=== PATIENT | female | born 1975 | race American Indian/Alaskan Native ===

== ENCOUNTER 2018-08-08 13:14 | Emergency (ER) | payer BC, OTHER ==
[~2018-08-08] VITALS: Ht 165.1 cm; Wt 99.8 kg
--- NOTE | 2018-08-08 13:40 | NUR ---
PATIENT TO ROOM AT 1340
[2018-08-08 13:55] LABS: BASOPHILS % 0.4 % (0.0-1.0); EOSINOPHILS # (AUTO) 0.2 (0.0-0.4); EOSINOPHILS % 2.6 % (0.0-6.0); HEMATOCRIT 34.8 % (34.2-44.1); LYMPHOCYTES # (AUTO) 1.2 (1.0-3.2); LYMPHOCYTES % 16.3 % (18.0-39.1); MEAN CORPUSCULAR HEMOGLOBIN 24.6 pg (28-32); MEAN CORPUSCULAR HGB CONC 31.6 g/dL (31-35); MEAN CORPUSCULAR VOLUME 77.7 fL (81-99); MONOCYTES # (AUTO) 0.6 (0.2-0.8); MONOCYTES % 7.3 % (4.4-11.3); NEUTROPHILS # (AUTO) 5.5 (2.1-6.9); PLATELET COUNT 408 x10e3/uL (140-360); RED BLOOD COUNT 4.48 x10e6/uL (3.6-5.1); RED CELL DISTRIBUTION WIDTH 18.8 % (11.7-14.4)
[2018-08-08 13:56] LABS: COLOR,URINE YELLOW (YELLOW)
[2018-08-08 13:57] LABS: BILIRUBIN,URINE NEGATIVE (NEGATIVE); CLARITY,URINE SL CLOUDY (CLEAR); KETONES,URINE NEGATIVE (NEGATIVE); LEUKOCYTE ESTERASE ,URINE NEGATIVE (NEGATIVE); NITRITE,URINE NEGATIVE (NEGATIVE); PROTEIN,URINE DIPSTICK NEGATIVE (NEGATIVE); URINE UROBILINOGEN 0.2 mg/dL (0.2 - 1)
--- NOTE | 2018-08-08 14:06 | NUR ---
BEDSIDE REPORT TO AIDAN BISWAS R.N.
[2018-08-08 14:07] LABS: BACTERIA,URINE MODERATE /HPF; EPITHELIAL CELLS,URINE MANY /LPF; MUCUS,URINE MODERATE (RARE); RBC,URINE 0-5 /HPF (0-5); TRANSITIONAL EPI CELLS,URINE MODERATE
[2018-08-08 14:10] LABS: ALANINE AMINOTRANSFERASE 40 IU/L (0-55); ALBUMIN 3.5 g/dL (3.5-5.0); ALBUMIN/GLOBULIN RATIO 0.9 (0.8-2.0); ALKALINE PHOSPHATASE 83 IU/L (40-150); ANION GAP 11.3 mmol/L (8-16); BLOOD UREA NITROGEN 15 mg/dL (7-26); BUN/CREATININE RATIO 21 (6-25); CARBON DIOXIDE 23 mmol/L (22-29); CHLORIDE 106 mmol/L (98-107); CREATININE, SERUM 0.72 mg/dL (0.57-1.11); EST GLOMERULAR FILTRATION RATE > 60 ML/MIN (60-); GLUCOSE 135 mg/dL (74-118); POTASSIUM 3.3 mmol/L (3.5-5.1); SODIUM 137 mmol/L (136-145)
[2018-08-08] MEDS ORDERED: SODIUM CHLORIDE 0.9% 50ML 50 ML ONE (14:25)
[2018-08-08] MEDS ORDERED: IOPAMIDOL 370 MG/ML 200 ML INFUS..BTL INJ ONE (14:26)
--- NOTE | 2018-08-08 15:07 | Diagnostic Imaging Report ---
Exam: Head CT without contrast History: Dizziness, lightheadedness Comparison studies: None Technique: Axial images were obtained from the skull base to the vertex. Coronal and sagittal images reconstructed from the axial data. Dose modulation, iterative reconstruction, and/or weight based adjustment of the mA/kV was utilized to reduce the radiation dose to as low as reasonably achievable. Radiation dose: Total DLP: 921 mGy*cm. Estimated effective dose: DLP x 0.015 Intravenous contrast: None Findings: Scalp: No abnormalities. Bones: No fractures, blastic or lytic lesions. Brain sulci: Right frontal convexity are mildly prominent. Ventricles: Normal in size and configuration. No hydrocephalus. Extra-axial spaces: Small mildly prominent extra-axial space similar to that of CSF density along the anterior left middle cranial fossa may reflect small arachnoid cyst and does not result in significant mass. No other mass or fluid collection. Parenchyma: No abnormal densities. No masses, acute hemorrhage, acute or chronic vascular insults. Sellar/suprasellar region: No abnormalities. Craniocervical junction: Patent foramen magnum. No Chiari one malformation. Incidental findings: Left sphenoid sinus partially opacified by nonspecific frothy secretions. IMPRESSION: 1. No acute intracranial abnormalities. 2. Incidental nonspecific inflammatory changes in the left sphenoid sinus. Signed by: Dr. Easton Goddard M.D. on 08/08/2018 3:03 PM
--- NOTE | 2018-08-08 15:09 | Diagnostic Imaging Report ---
EXAMINATION: CT of the chest with contrast, PE protocol. TECHNIQUE: Spiral CT images of the chest were performed from the lung apices through the level of the adrenal glands after the IV administration of 100 cc of Isovue-[id number]. Thin section reconstructions were obtained with special concentration on the pulmonary arteries. COMPARISON: None available CLINICAL HISTORY:Dizziness, shortness of breath DISCUSSION: Vasculature: The main pulmonary artery, right and left pulmonary arteries, and their visualized lobar and segmental branches are patent, without filling defect. The pulmonary outflow tract is of normal caliber. There is no ectasia or aneurysmal dilatation of the thoracic aorta. Lungs: Lungs are clear. No airspace consolidation, bronchiectasis, mass lesion, or gross fibrotic change. Minimal linear and reticular opacities in the dependent lower lobes compatible with subsegmental atelectasis. Similar findings in the inferior lingula. 3 mm left lower lobe pulmonary nodule seen on series 8 image 93. Airways: <The major airways are clear.> Pleura: <There is no evidence of pleural effusion or pneumothorax.> Heart and mediastinum: Visualized portions of thyroid gland appear normal. Mediastinal lipomatosis. Heterogeneous soft tissue attenuation in the anterior mediastinum may reflect residual thymic tissue or multiple small lymph nodes. No axillary, hilar, or mediastinal lymphadenopathy. No pericardial effusion. Abdomen: Visualized portions of the liver, spleen, pancreas, and adrenal glands are unremarkable. Status post cholecystectomy. Bones and soft tissues: No osseous destructive lesions. No focal soft tissue abnormalities. IMPRESSION: No pulmonary embolus to the level of the segmental branch pulmonary arteries. 3 mm left lower lobe pulmonary nodule may be assessed for stability by CT scan of the chest without contrast in one year if the patient is at high risk for malignancy per Fleischner Society 2017 guidelines. Signed by: Dr. Easton Bryson M.D. on 08/08/2018 3:05 PM
[2018-08-08] MEDS ORDERED: MECLIZINE HCL12.5 MG PO (15:19)
[2018-08-08 15:51] VITALS: BP 118/63
== END 2018-08-08 16:00 | disposition home or self-care (01) ==
LOC: ER 13:14
DX: R42 Dizziness and giddiness (principal); R06.02 Shortness of breath
CPT/HCPCS: 36415; 70450; 71260; 80053; 81001; 84702; 85025; 93005; 99284; Q9967